=== PATIENT | male | born 1940 | race Caucasian/White ===

== ENCOUNTER → 2016-12-02 | Outpatient (CLI) | payer OTHER ==
[~2016-12-02] VITALS: Ht 177.8 cm; Wt 89.4 kg
[~2016-12-02] MED LIST: AMOXICILLIN 50500 MG PO; ASPIR 8181 MG PO; CENTRUM SILVER1 EAC4 PO; ECOTRIN325 MG PO; FISH OIL 1,001000 M1 PO; FLEXERIL PO; LOSARTAN POTAS100 MG PO; MOBIC7.5 MG PO; NORCO 10-325 T1 EACH PO; VYTORIN 10-401 EACH PO
[2016-12-02 11:02] VITALS: BP 132/61
== END | disposition home or self-care (01) ==
LOC: PAIN 07:33
DX: M54.16 Radiculopathy, lumbar region (principal); I11.9 Hypertensive heart disease without heart failure; Z95.1 Presence of aortocoronary bypass graft; Z98.890 Other specified postprocedural states; Z87.891 Personal history of nicotine dependence

== ENCOUNTER → 2016-12-04 | Outpatient (CLI) | payer OTHER ==
[2016-12-04 12:36] VITALS: BP 132/65
== END | disposition home or self-care (01) ==
LOC: PAIN 11:13
DX: M54.16 Radiculopathy, lumbar region (principal); I10 Essential (primary) hypertension; Z95.5 Presence of coronary angioplasty implant and graft; Z96.641 Presence of right artificial hip joint; Z87.891 Personal history of nicotine dependence; Z88.2 Allergy status to sulfonamides; Z79.82 Long term (current) use of aspirin; Z79.899 Other long term (current) drug therapy

== ENCOUNTER → 2016-12-18 | Outpatient (CLI) | payer OTHER ==
[~2016-12-18] VITALS: Ht 177.8 cm; Wt 87.7 kg
--- NOTE | ~2016-12-18 | HPC ---
[facility] [place] [place] [address] PAIN MANAGEMENT CONSULTATION Name: MIRANDA MUNGUIA Room #: REG [facility]#: [id number] Admission: 12/18/16 Attend Phys: Erica Mendoza MD Discharge: Date of : 38 Report #: [id number] THIS REPORT FOR: //name// CC: Abhishek Cameron Jr., MD DATE OF SERVICE: 12/18/2016 FOLLOWUP COMPLAINT: The back pain is greater than 60% improved. FOLLOWUP HISTORY: The patient is a 76-year-old gentleman who has been seen in the pain clinic because of lumbar radiculopathy. As you recall, he was suffering from L5-S1 radiculopathy with pain radiating down into that dermatome. He has note on his MRI of a mass measuring 0.9 cm x 12 mm, which is obliterating the thecal sac and spinal cord with severe stenosis at the L5-S1 level. IMPRESSION: 1. Hypertension. 2. Cardiac disease. RECOMMENDATIONS: We discussed treatment options with the patient. Risks and benefits of another epidural steroid injection were explained. Given that the patient had such good result with the first injection, which improved after the injection without complications, we will proceed with another epidural steroid injection after his insurance company grants him the ability to proceed. MRI findings indicated mass effect at the L5-S1 nerve root with clinical findings correlating to the L5-S1 dermatomal location. The patient has gleaned greater than 60% improvement after the epidural steroid injection and would like to proceed as soon as possible with another. By: [id number] Erica Mendoza MD /nt
[2016-12-18 09:10] VITALS: BP 111/60
== END | disposition home or self-care (01) ==
LOC: PAIN 08:44
DX: M54.16 Radiculopathy, lumbar region (principal); M48.06 Spinal stenosis, lumbar region; I11.9 Hypertensive heart disease without heart failure

== ENCOUNTER → 2016-12-25 | Outpatient (CLI) | payer OTHER ==
[~2016-12-25] VITALS: Ht 177.8 cm; Wt 87.5 kg
--- NOTE | ~2016-12-25 | HPC ---
[facility] [place] [address] PAIN MANAGEMENT CONSULTATION Name: MIRANDA MUNGUIA Rosalia Room #: REG Consuelo WestfallCarlitos#: [id number] Admission: 12/25/16 Attend Phys: Erica Mendoza MD Discharge: Date of : 38 Report #: [id number] THIS REPORT FOR: //name// CC: Erica Cameron Jr., MD DATE OF SERVICE: 12/25/2016 FOLLOWUP COMPLAINT: Pain was helped after the last epidural injection, but is now started to return. FOLLOWUP HISTORY: The patient is a 76-year-old gentleman who has been seen in the pain clinic because of lumbar radiculopathy. He underwent the first epidural steroid injection and gleaned greater than 60% pain relief. He continues to have some pain and discomfort with some pain in the lower portion of his back. The left-sided pain has improved somewhat, but right-sided pain and left-sided pain are about equal today. He feels that another epidural steroid injection would be helpful. He has had no complication from the last injection and would like to pursue another injection at this juncture. PHYSICAL EXAMINATION: Blood pressure is 134/60, pulse 86, respiratory rate 16, room air saturation is 100%, height 5 feet 10 inches tall, weight 193 pounds, and BMI is 27.7. He has not fallen since we saw him last. He has had no lumbar complications. No change in bowel or bladder function. He would like to proceed with another epidural steroid injection. IMPRESSION: 1. Lumbar radiculopathy in the L5-S1 distribution, improved after the first epidural steroid injection. 2. Hypertension. 3. Cardiac disease status post 2 stent placements in 2006. RECOMMENDATIONS: We discussed treatment options with the patient. Again, risks and benefits of an epidural steroid injection were discussed. Possible complications were reviewed. The patient elects to proceed. PROCEDURE NOTE: The patient was placed in the prone position. Fluoroscopy was used to identify the L5-S1 distribution/interspace. A 17-gauge Tuohy with loss of resistance technique was used to gain access to the epidural space after this area had been sterilely prepped with Betadine and infiltrated with 0.25% bupivacaine. Total of 80 mg Depo-Medrol, 40 mg triamcinolone and 2 mL of 0.25% bupivacaine was injected. The patient tolerated the [place] [address] PAIN MANAGEMENT CONSULTATION Name: MIRANDA MUNGUIA Room #: REG SONNYConsuelo Kirby#: [id number] Admission: 12/25/16 Attend Phys: Erica Mendoza MD Discharge: Date of : 38 Report #: [id number] no complications. We would like to thank you for letting us participate in his care. We hope he continues to improve. <ELECTRONICALLY SIGNED> By: Erica Mendoza MD 12/30/16 0845 [id number] MD khai Rivera
[2016-12-25 08:05] VITALS: BP 134/60
== END | disposition home or self-care (01) ==
LOC: PAIN 07:14
DX: M54.16 Radiculopathy, lumbar region (principal); I10 Essential (primary) hypertension; I51.9 Heart disease, unspecified; Z95.5 Presence of coronary angioplasty implant and graft; Z98.890 Other specified postprocedural states; Z79.82 Long term (current) use of aspirin; Z88.2 Allergy status to sulfonamides; Z79.899 Other long term (current) drug therapy

== ENCOUNTER → 2017-11-26 | Outpatient (CLI) | payer OTHER ==
[~2017-11-26] VITALS: Ht 177.8 cm; Wt 85.5 kg
[~2017-11-26] MED LIST changes: +GABAPENTIN 100100 MG PO; +MEDROLDOSEPACK PO; +MOBIC15 MG PO; +OMEPRAZOLE40 MG PO
--- NOTE | ~2017-11-26 | HPC ---
[facility] [place] [address] PAIN MANAGEMENT CONSULTATION Name: EZRAMIRANDA Rosalia Room #: REG Consuelo Hiren#: [id number] Admission: 11/26/17 Attend Phys: Erica Mendoza MD Discharge: Date of : 38 Report #: [id number] THIS REPORT FOR: //name// CC: Erica Cameron Jr., MD DATE OF SERVICE: 11/26/2017 FOLLOWUP COMPLAINT: "I am having pain that is going down into my leg ____." FOLLOWUP HISTORY: The patient is a 77-year-old gentleman who has been seen in the pain clinic in the past because of lumbar radiculopathy. He underwent injections and continued to have pain and discomfort. He later went to a surgeon. It was found that the patient did have some pathology. He underwent back surgery in March. Things went reasonably well for a while. He then noticed some pain and discomfort, which started to increase. He feels that the pain had gotten so bad that he needed to go to the Emergency Room. He was seen in the Emergency Room. He underwent an imaging of his back with an MRI. The patient saw a physician, Dr. Wagner. The patient was told that at this juncture, he would need to wait at least 1 year post-surgery before any intervention could be undertaken. There was nothing significant seen on the MRI, which was performed when he was hospitalized. Denies any bowel or bladder dysfunction. Continues to have pain and discomfort down into his legs. He feels that his legs are weak. He is walking with use of a cane. Notes that if he coughs or sneezes a worsening of pain with pain radiating down into his right leg. Feels that there is some numbness in his right heel. Describes the shooting pain down into his leg as a piece of hot steel. The patient states he was sent to the pain clinic for evaluation and the possibility of epidural steroid injections to help calm things down, at this juncture. ALLERGIES: SULFA. MEDICATIONS: Omeprazole 40 mg, gabapentin 100 mg b.i.d., meloxicam, Vytorin 10/40 mg, aspirin 81 mg, multivitamin, Centrum Silver, fish oil 1000 mg, losartan 100 mg, and amoxicillin 500 mg t.i.d. prior to dental appointments. LABORATORY DATA: MRI dated 05/11/2007 with contrast. Findings, there is no nodular enhancement of the conus or cauda equina. There is no enhancement in the intervertebral disk space. There are degenerative changes as described from the noncontrast exam. There have been posterior decompression at L3-L4, L4-L5, and right laminectomy L5-S1. There is some mild enhancing. 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 No enhancement in the intervertebral disk spaces. [address] [address] PAIN MANAGEMENT CONSULTATION Name: MIRANDA MUNGUIA Room #: REG JOELLE Kirby#: [id number] Admission: 11/26/17 Attend Phys: Erica Mendoza MD Discharge: Date of : 38 Report #: [id number] PAIN CLINIC ASSESSMENT: 1. History of osteoarthritis. The patient has some joints as well as some spine osteoarthritic changes. 2. Height 5 feet 10 inches, weight 188 pounds, BMI is 27. 3. Vital signs: Blood pressure 141/60, pulse 68, respiratory rate 18, room air saturation 100%. 4. Pain intensity, 2 while sitting and 7-8 with activity. 5. Fall risk. The patient has not fallen in the last 3 months. 6. Blood thinner. The patient is not on a blood thinning medication. 7. Hypertension. The patient is not on antihypertensive medication. 8. Opioid therapy greater than 6 weeks. The patient is not on an opioid medication. 9. Risk assessment tool. 10. Functional assessment tool. 11. Recreational drug use. The patient denies use of recreational drugs. 12. Tobacco: The patient has never smoked. 13. Alcohol: The patient denies frequent use of alcoholic beverages. PHYSICAL EXAMINATION: GENERAL: The patient is a well-developed, well-nourished white male. Appears his stated age. He is alert and oriented x 3. Speech is fluent. HEENT: Normocephalic, atraumatic. Extraocular eye muscles intact. Sclerae nonicteric. Hearing is within normal limits. Mucous membranes are moist. NECK: Without JVD, bruits, or adenopathy. Good range of motion. CHEST: Clear to auscultation. HEART: Regular rate. S1, S2. ABDOMEN: Nontender. MUSCULOSKELETAL: Without significant scoliosis, kyphosis, or lordosis. Upper muscle strength is judged to be 5/5 for the muscle groups in the upper extremity without sensory changes and muscle bulk is symmetrical. Lower extremity muscle strength is judged to be 5/5 on the left and 4/5 on the right. The patient states that it feels like a hot steel radiating down his leg when he steps down. Notes a worsening of pain and discomfort with coughing. Has a positive straight leg raise. Walks with use of a cane. IMPRESSION: 1. 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 2. Hypertension. 3. Cardiac disease status post 2 stents in 2006. RECOMMENDATION: We would recommend the patient undergo epidural injection using possibly the transforaminal approach at this juncture. He is aware of the possible complication of the procedure, which we discussed and would like to proceed. The patient will return to the pain clinic after his insurance company allows him to proceed with an epidural steroid injection. Pain is radiating [facility] [address] [place] [address] PAIN MANAGEMENT CONSULTATION Name: MIRANDA MUNGUIA Room #: REG JOELLE JensenHiren#: [id number] Admission: 11/26/17 Attend Phys: Erica Mendoza MD Discharge: Date of : 38 Report #: [id number] down into both legs, the right more problematic than the left, but we will do both left and right transforaminal approaches. Given that the patient has had surgery in this area and continues to have pain and discomfort, which is problematic. We would like to thank you for letting us participate in his care. We hope he continues to improve. By: [id number] Erica Mendoza MD /DILCIA
[2017-11-26 09:21] VITALS: BP 141/60
== END ==
LOC: PAIN 06:51
DX: M54.16 Radiculopathy, lumbar region (principal); I11.9 Hypertensive heart disease without heart failure

== ENCOUNTER → 2017-12-15 | Outpatient (CLI) | payer OTHER ==
[~2017-12-15] VITALS: Ht 177.8 cm; Wt 85.8 kg
[~2017-12-15] MED LIST changes: +IBUPROFEN 200200 M1 PO
--- NOTE | ~2017-12-15 | HPC ---
[facility] [address] [place] [address] PAIN MANAGEMENT CONSULTATION Name: EZRAMIRANDA Rosalia Room #: REG JOELLE WestfallCarlitos#: [id number] Admission: 12/15/17 Attend Phys: Erica Mendoza MD Discharge: Date of : 38 Report #: [id number] THIS REPORT FOR: //name// CC: Erica Cameron DATE OF SERVICE: 12/15/2017 FOLLOWUP COMPLAINT: Here for the injection because "I am having pain that is going down on my legs." FOLLOWUP HISTORY: The patient is a 77-year-old gentleman who has been referred to the pain clinic for evaluation. The patient states that he has had some surgery in his back. He has noted some return of pain and discomfort, which has been radiating down into his back. Notes some pain that is in the left lower leg down into the area of the calf. Also, has some pain in the right leg in the lateral portion and posterior portion of his leg. The patient underwent surgery in March 2017. At this juncture, he has been experiencing some pain and discomfort. He has been referred to the Pain Clinic for possible epidural treatment. 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 He would like to gain his ability to drive for prolonged periods of time. Because of the pain and discomfort with pain down into his leg, which he describes as a piece of hot steel, he is limited. He has returned today for an injection and that his insurance company has allowed him to proceed. ALLERGIES: SULFA. MEDICATIONS: Omeprazole 40 mg, gabapentin 100 mg b.i.d., meloxicam, Vytorin 10/40, aspirin 81 mg, multivitamins, Centrum Silver, fish oil 1000 mg, losartan 100 mg, amoxicillin 500 mg t.i.d. prior to dental appointments. PAIN CLINIC ASSESSMENT: 1. History of osteoarthritis. Has some pain and discomfort in his joints as well as some arthritic changes in his spine. 2. Height 5 feet 10 inches, weight 189 pounds, BMI 27.1. 3. Vital signs: Blood pressure 135/70, pulse is 74, respiratory rate 16, room air saturation 100%. 4. Pain intensity 12/31. 5. Fall risk. The patient has not fallen in the last 3 months, but does have some problems walking. He walks and uses a cane. 6. Blood thinner. The patient is not using a blood thinning medication. 7. History of hypertension. The patient is being treated for hypertension. 8. Opioid therapy greater than 6 weeks. The patient is not on an opioid therapy. 9. Risk assessment tool, low for use of opioid. 10. Functional assessment tool 39/70[place] [address] PAIN MANAGEMENT CONSULTATION Name: MIRANDA MUNGUIA Room #: REG JOELLE Kirby#: [id number] Admission: 12/15/17 Attend Phys: Erica Mendoza MD Discharge: Date of : 38 Report #: [id number] 11. Recreational drug use. The patient denies use of recreational drugs. 12. Tobacco: The patient has never smoked. 13. Alcohol: The patient denies frequent use of alcoholic beverages. PHYSICAL EXAMINATION: GENERAL: The patient is a well-developed, well-nourished white male. Appears his stated age. He is alert and oriented x 3. Speech is fluent. HEENT: Normocephalic, atraumatic. Extraocular eye muscles intact. Sclerae nonicteric. Hearing is within normal limits. Mucous membranes are moist. NECK: Without JVD, bruits, or adenopathy. Good range of motion. CHEST: Clear to auscultation. HEART: Regular rate. S1, S2. ABDOMEN: Nontender. MUSCULOSKELETAL: Without scoliosis, kyphosis or lordosis. Upper extremity muscle strength is judged to be 5/5 for the major muscle groups without sensory changes. Lower extremity muscles judged to be 4/5 on the right and 5/5 on the left. The patient has a well-healed scar in the lower lumbar area, status post surgery. Pain and discomfort radiating down to the left lateral posterior thigh area. Walks with a cane. Complains of some pain and discomfort in the right leg as well. IMPRESSION: 1. 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 2. Hypertension. 3. Cardiac disease status post 2 stents in 2017. RECOMMENDATIONS: We discussed treatment options with the patient. Risks and benefits of a transforaminal epidural steroid injection on the left and right were both discussed. The patient has recently had surgery. We explained the need to perform a transforaminal approach given that the patient has had scar tissue in the midline area as well as part of the landmarks have been removed. He is aware of the possible complications, which were discussed. They include but are not limited to infection, increased muscle soreness, headache, bleeding, worsening of pain, nerve damage, spinal headaches. The patient elects to proceed. PROCEDURE NOTE: The patient was placed in the prone position. Fluoroscopy was used to identify the L5-S1 areas using fluoroscopy in the anterior, posterior as well as lateral views. The back was sterilely prepped. A 0.25% bupivacaine was infiltrated into the left and right transforaminal areas. A 20-gauge spinal needle was then advanced into the appropriate place on the left for the L5-S1 nerve as well as on the right. A total of 80 mg Depo-Medrol on the left and 80 mg triamcinolone on the right was placed. The patient tolerated the procedure well. There were no complications. Total of 29 seconds fluoroscopy time was used. The patient's pain level was decreased from 8 to 3 at the time of [facility] [address] [place] [address] PAIN MANAGEMENT CONSULTATION Name: MIRANDA MUNGUIA Room #: REG [facility] Center[facility] [id number] Admission: 12/15/17 Attend Phys: Erica Mendoza MD Discharge: Date of : 38 Report #: [id number] discharge. He will follow up in the future as needed. We would like to thank you for letting us participate in his care. We hope he continues to improve. <ELECTRONICALLY SIGNED> By: Erica Mendoza MD 12/17/17 1631 [id number] 22 Erica Mendoza MD /nt
[2017-12-15 09:25] VITALS: BP 135/70
== END | disposition home or self-care (01) ==
LOC: PAIN 06:25
DX: M54.16 Radiculopathy, lumbar region (principal); M96.1 Postlaminectomy syndrome, not elsewhere classified; I10 Essential (primary) hypertension; Z95.5 Presence of coronary angioplasty implant and graft; Z86.79 Personal history of other diseases of the circulatory system; Z88.2 Allergy status to sulfonamides; Z79.82 Long term (current) use of aspirin; Z79.899 Other long term (current) drug therapy

== ENCOUNTER → 2018-01-19 | Outpatient (CLI) | payer OTHER ==
[~2018-01-19] VITALS: Ht 177.8 cm; Wt 87.5 kg
--- NOTE | ~2018-01-19 | HPC ---
[facility] [address] [place] [address] PAIN MANAGEMENT CONSULTATION Name: MIRANDA MUNGUIA Room #: REG JOELLE Kofi#: [id number] Admission: 01/19/18 Attend Phys: Erica Mendoza MD Discharge: Date of : 38 Report #: [id number] THIS REPORT FOR: //name// CC: Erica Cameron Jr., MD DATE OF SERVICE: 01/19/2018 FOLLOWUP COMPLAINT: Pain has started again. FOLLOWUP HISTORY: The patient is a 77-year-old gentleman who has been seen in the pain clinic because of low back pain and his pain has been radiating down into his right leg and left foot. As you recall, he used to drive cars for a car dealership. He has been unable to be gainfully employed because of the worsening of the pain and discomfort, which he has been experiencing. He rates it as a 7/10. He is walking with a cane. As you recall, he had back surgery in 02/2017, in spite of that, he continues to have pain, which is increased. Notes that the pain improves somewhat with rest and with sitting. It is worsened when he is walking or standing. He has returned today with the hope of proceeding with another injection. He notes that the right foot and leg are the worst. Still has some discomfort in the left side as well, but noted that the injection on the left side and has provided some benefit. He has had no complication from the last injection. He would like to return and undergo another injection given the continued pain and inability to ambulate. ALLERGIES: SULFA. MEDICATIONS: 1. Omeprazole 40 mg. 2. Gabapentin 100 mg b.i.d. 3. Meloxicam. 4. Vytorin 10. 5. Aspirin 81 mg. 6. Multivitamins. 7. Centrum Silver. 8. Fish oil 1000 mg. 9. Losartan 100 mg. 10. Amoxicillin 500 mg t.i.d. prior to dental appointments. PAIN CLINIC ASSESSMENT: 1. History of osteoarthritis. The patient has had some pain and discomfort with his joints as well as some arthritic changes in the spine. 2. Height 5 feet 10 inches, weight 193 pounds, BMI is 27.7. 3. Vital signs: Blood pressure is 97/45, pulse 65, respiratory rate 18, room air saturation 97%. [address] [address] PAIN MANAGEMENT CONSULTATION Name: MIRANDA MUNGUIA Room #: REG JOELLE Kofi#: [id number] Admission: 01/19/18 Attend Phys: Erica Mendoza MD Discharge: Date of : 38 Report #: [id number] 4. Pain intensity 11/30. 5. Fall risk. The patient has not fallen in the last 3 months. He does walk with use of a cane. 6. Blood thinner. The patient is not on a blood thinning medication. 7. History of hypertension. The patient is being treated for hypertension. 8. Opioid therapy greater than 6 weeks. The patient receives opioid medications through the pain clinic. 9. Risk assessment low for opioid use. 10. Functional assessment tool 39/70. 11. Recreational drug use. The patient denies use of recreational drugs. 12. Tobacco: The patient has never smoked. 13. Alcohol: The patient denies use of alcoholic beverages. PHYSICAL EXAMINATION: GENERAL: The patient is a well-developed, well-nourished white male. Appears his stated age. He is alert and oriented x 3. Speech is fluent. HEENT: Normocephalic, atraumatic. Extraocular muscles intact. The patient wears glasses. Sclerae nonicteric. Hearing was within normal limits. Mucous membranes are moist. NECK: Without JVD, bruit, or adenopathy. Good range of motion. CHEST: Clear to auscultation without rhonchi or rales. HEART: Regular rate. S1, S2. ABDOMEN: Nontender. MUSCULOSKELETAL: Without scoliosis, kyphosis or lordosis. Upper extremity muscle strength is judged to be 5/5 for the major muscle groups. Sensory without sensory changes. Lower extremity muscle strength 4/5 on the right and 5/5 on the left. The patient has some well-healed scar in the lower portion of his back status post surgery. Has pain and discomfort radiating down into the right leg with numbness and tingling. Continues to walk with a cane. Complains of some discomfort on the left. IMPRESSION: 1. Failed back syndrome with recurrence of lumbar radicular pain involving the L5-S1 distribution primarily on the right at this juncture. 2. Hypertension. 3. Cardiac disease status post 2 stents in 2017. RECOMMENDATIONS: We discussed treatment options with the patient. Risks and benefits of transforaminal epidural steroid injection were again discussed. Possible complications of the procedure were reviewed. The patient did get some improvement on the left side after the last injection. He would like to proceed with an injection on the right side to see if this would help control the pain and discomfort, which has been problematic and which he rates as 8 in his foot and 6 in his leg. Procedure note: [facility] [address] [place] [address] PAIN MANAGEMENT CONSULTATION Name: MIRANDA MUNGUIA Room #: REG JOELLE Kirby#: [id number] Admission: 01/19/18 Attend Phys: Erica Mendoza MD Discharge: Date of : 38 Report #: [id number] The patient was taken to the procedure room. He was helped to position himself one the flouro table. Fluroscopy using anter-posterior and lateral viewing was used to confirm needle placements. His back was sterily preped with betadine. The right and left L5-S1 areas were identified. A 20 guage spinal needle was placed first in the right area then left L5-S1 areas and confirmed placement with fluro. The areas were infiltrated with 0.25% bupivicaine. A total of 80mg depomedrol with injected into the left and the right areas. The patient did not have pain or discomfort with injection. No bleeding was noted. Patient was then taken to the recovery room and dischared in good condition He will call the clinic if he has any concerns. <ELECTRONICALLY SIGNED> By: Erica Mendoza MD 02/02/18 1625 [id number] Erica Mendoza MD /nt
[2018-01-19 13:31] VITALS: BP 97/45
== END | disposition home or self-care (01) ==
LOC: PAIN 06:56
DX: M54.16 Radiculopathy, lumbar region (principal)

== ENCOUNTER → 2018-03-31 | Outpatient (CLI) | payer OTHER | LOC: RAD 10:49 | DX: M47.26 Other spondylosis with radiculopathy, lumbar region (principal); M51.17 Intervertebral disc disorders with radiculopathy, lumbosacral region; M41.86 Other forms of scoliosis, lumbar region ==

== ENCOUNTER → 2018-12-21 | Outpatient (CLI) | payer OTHER ==
[~2018-12-21] VITALS: Ht 177.8 cm; Wt 85.0 kg
[~2018-12-21] MED LIST changes: +NEURONTIN 300300 M1 PO
[2018-12-21 08:42] VITALS: BP 120/51
--- NOTE | 2018-12-21 09:01 | NUR ---
Pain Clinic Assessment: 1. History of Osteoarthritis: JOINTS SPINE History of Rheumatoid Arthritis: Not Applicable 2. Height: 5 ft. 10 in. 177.8 cm. Weight: 187.4 lb. oz. 85.004 kg. Patient's BMI: 26.9 3. Vital Signs: BP: 120/51 Pulse: 70 Resp: 16 Temp: 02 Sat: 98 ECG Mon: 4. Pain Intensity: 6 5. Fall Risk: Dizziness: N Needs help standing or walking: N Fallen in the last 3 months: N Fall risk comments: 6. Patient on Blood Thinner: None 7. History of Hypertension: Y 8. Opioid Therapy greater than 6 weeks: N Opiate Contract Signed: 9. Risk Assessment Tool Provided: 0-LOW 10. Functional Assessment Tool: 11. Recreational Drug Use: Never Drug Type: Tobacco Use: Never Smoker Tobacco Type: Amount or Packs/day: How Many Years: Alcohol Use: No Frequency: Quant:
--- NOTE | 2018-12-28 17:05 | HPC ---
[facility] [address] [place] [address] PAIN MANAGEMENT CONSULTATION Name: MIRANDA MUNGUIA Room #: REG JOELLE Kofi#: [id number] Admission: 12/21/18 ������������������ Attend Phys: Erica Mendoza MD Discharge: ������������������ Date of : 36 Report #: [id number] THIS REPORT FOR: //name// CC: Erica Cameron DATE OF SERVICE: 12/21/2018 CHIEF COMPLAINT: Still having back and leg pain. HISTORY: The patient is an 78-year-old gentleman, who has been seen in the pain clinic in the past. As you recall, he has had pain with lumbar radicular components, it radiated down into the lower portion of his back and involved his feet with numbness and tingling. He underwent epidural steroid injections and gleaned some benefits from them, but not custodial. After review of his pathology, he underwent disk surgery because of stenosis. The patient continued to have pain involving the left and right leg with numbness and tingling. As a result of the continued pain, he underwent disk surgery. After the surgery, he still had pain and because of the discomfort, was evaluated for spinal cord stimulator. Spinal cord trial did not provide any significant benefit. He continues to have pain at this juncture involving his left leg and pain in both feet. He feels that the heel of his foot on the right is numb. He has been using gabapentin; initially, started at 100 mg t.i.d. and is now at 200 mg t.i.d., but still has not noticed a significant improvement in his pain. CURRENT MEDICATIONS: Ibuprofen 200 mg, total of 600 mg daily; gabapentin 200 mg t.i.d., meloxicam 15 mg, Flexeril 10 mg t.i.d., Vytorin 10/40, aspirin 81 mg, Centrum Silver, fish oil 1000 mg, losartan 100 mg, and ampicillin 500 mg prior to dental appointment. ALLERGIES: SULFA. PAIN CLINIC ASSESSMENT AND PQRS: 1. History of osteoarthritis. The patient has some discomfort in lower portion of his back. He has some arthritic changes in his back. He is not being treated for rheumatoid arthritis. 2. Pain intensity is 6/10. 3. Fall history: The patient has not fallen in the last 3 months. 4. Blood thinner. The patient is not on a blood thinning medication. 5. Hypertension. The patient is being treated for hypertension. 6. Opioids. The patient is not on an opioid regimen. 7. Risk assessment tool, low for opioid use. 8. Functional assessment tool, 39/70. 9. Recreational drugs. The patient denies use of recreational drugs. 10. Tobacco: The patient has never smoked. 11. Alcohol: The patient denies use of alcoholic beverages. [facility] [address] [place] [address] PAIN MANAGEMENT CONSULTATION Name: MIRANDA MUNGUIA Room #: REG CLI Kofi#: [id number] Admission: 12/21/18 ������������������ Attend Phys: Erica Mendoza MD Discharge: ������������������ Date of : 36 Report #: [id number] PHYSICAL EXAMINATION: GENERAL: The patient is a well-developed, well-nourished white male. He appears his stated age. He is alert and oriented x 3. His affect is appropriate. Speech is fluent. Height is 5 feet 10 inches, weight is 187 pounds, and BMI is 26.9. VITAL SIGNS: Blood pressure is 120/51, pulse is 70, respiratory rate is 16, and room air saturation is 98%. HEENT: Normocephalic, atraumatic. Extraocular eye muscles intact. Sclerae nonicteric. Mucous membranes are moist. The patient is wearing glasses. NECK: Without adenopathy or JVD. Good range of motion. CHEST: Clear to auscultation. HEART: Regular rate. S1, S2. ABDOMEN: Nontender. MUSCULOSKELETAL: Without significant scoliosis, kyphosis, or lordosis. Upper extremity muscle strength is judged to be 5-/5 for the major muscle groups. The patient has pain and discomfort in lower portion of his back with pain radiating down into the L5-S1 area and he uses a cane to walk. Well-healed scars in the lower portion of his back. He complains of numbness in his right heel in the L5 dermatomal distribution. IMPRESSION: 1. Chronic low back pain, right leg, still problematic. He continues to note some numbness in his heel. 2. Failed back syndrome. 3. Failed dorsal column stimulator trial. 4. Hypertension. 5. Cardiac disease, status post 2 stents placement in 2006. RECOMMENDATIONS: We have discussed treatment options with the patient. At this juncture, we would recommend that he continue with the gabapentin. It has been noted that some patients do not notice an improvement in pain until they have reached a level of 1800 mg of gabapentin. We would have the patient increase his gabapentin slowly until he gets to the level of 1800 mg. Possibility of an injection still is an option. We have provided the patient with Neurontin 300 mg tablets, he will take 1 p.o. t.i.d. He will call us if he has any concerns. We have discussed the side effects of gabapentin use. Should he have any problems with thinking or activities of daily living because of the gabapentin, he should call us and stop the medication as we have directed him. We would like to thank you for letting us to participate in his care. We hope he continues to improve. ��������������������������������������������� <ELECTRONICALLY SIGNED> ���������������������������������������� By: Erica Mendoza MD ��������������������������������������������� 12/28/18 1705 [id number] Erica Mendoza MD /[facility]
== END ==
LOC: PAIN 06:46
DX: M54.5 Low back pain (principal); G89.29 Other chronic pain; I11.9 Hypertensive heart disease without heart failure; Z79.899 Other long term (current) drug therapy; Z79.82 Long term (current) use of aspirin; Z88.2 Allergy status to sulfonamides; Z95.5 Presence of coronary angioplasty implant and graft